=== PATIENT | female | born 1980 | race Native Hawaiian/Other Pacific Islander ===

== ENCOUNTER 2017-04-03 22:06 | Emergency (ER) | payer OTHER ==
[2017-04-03] MEDS ORDERED: Lactated Ringer's 1,000 ML IV ONE (22:44)
--- NOTE | 2017-04-03 22:49 | C.PDOC ---
History Of Present Illness 37 year old female presents to the ER with a complaint of a headache since Thursday, associated with nausea, a cough since yesterday, and an intermittent subjective fever and chills for the past week with no fever today. Patient reports she has no relief from her headache with tylenol. Patient notes she recently returned from the [facility] on Thursday. Denies photophobia, chest pain , urinary frequency, vaginal discharge, abdominal pain, diarrhea or neck pain. No known sick contacts. Time Seen by Provider: 04/03/17 22:20 Chief Complaint (Nursing): Cough, Cold, Congestion History Per: Patient History/Exam Limitations: no limitations Onset/Duration Of Symptoms: Days Current Symptoms Are (Timing): Still Present Recent travel outside of the [place]: No Past Medical History Reviewed: Historical Data, Nursing Documentation, Vital Signs Vital Signs: Last Vital Signs Temp 98 F 04/04/17 01:42 Pulse 88 04/04/17 01:42 Resp 18 04/04/17 01:42 BP 120/81 04/04/17 01:42 Pulse Ox 99 04/04/17 02:42 - Medical History PMH: No Chronic Diseases Surgical History: No Surg Hx Family History: States: Unknown Family Hx - Social History Hx Alcohol Use: Yes Hx Substance Use: No - Immunization History Hx Tetanus Toxoid Vaccination: No Hx Influenza Vaccination: No Hx Pneumococcal Vaccination: No Review Of Systems Constitutional: Positive for: Fever (Intermittent) Cardiovascular: Negative for: Chest Pain Respiratory: Positive for: Cough Gastrointestinal: Positive for: Nausea Musculoskeletal: Negative for: Neck Pain Neurological: Positive for: Headache. Negative for: Other (Photophobia) Physical Exam - Physical Exam Appears: Non-toxic, No Acute Distress Skin: Normal Color, Warm, Dry Head: Atraumatic, Normacephalic Eye(s): bilateral: Normal Inspection, EOMI Ear(s): Bilateral: Normal Nose: Normal Oral Mucosa: Moist Throat: Normal, No Erythema, No Exudate Neck: Normal, Normal ROM, No Midline Cervical Tenderness, No Paracervical Tenderness, Supple ((-) brudzinski sign and kernig sign) Chest: Symmetrical Cardiovascular: Rhythm Regular Respiratory: Normal Breath Sounds, No Rales, No Rhonchi, No Wheezing Gastrointestinal/Abdominal: Soft, No Tenderness Neurological/Psych: Oriented x3, Normal Speech, Normal Cognition ED Course And Treatment - Laboratory Results Result Diagrams: 04/03/17 23:07 04/03/17 23:30 O2 Sat by Pulse Oximetry: 99 (Room air) Pulse Ox Interpretation: Normal - CT Scan/US CT Head Other Rad Studies (CT/US): Read By Radiologist, Radiology Report Reviewed CT/US Interpretation: EXAM: CT Head Without Intravenous Contrast. EXAM DATE/ TIME: 04/03/2017 10:44 PM. CLINICAL HISTORY: 37 years old, female; Pain; Headache and other: More at right side; Additional info: R/O bleed. TECHNIQUE: Axial computed tomography images of the head/brain without intravenous contrast. All CT scans at. this facility use one or more dose reduction techniques, viz.: automated exposure control; ma/kV. adjustment per patient size (including targeted exams where dose is matched to indication; i.e. head); . or iterative reconstruction technique. Coronal and sagittal reformatted images were created and reviewed. COMPARISON: There are no prior studies for comparison. FINDINGS: Brain: Ventricles are normal in size and configuration. There is no midline shift. There are no intraaxial. or extra-axial mass lesions or areas of hemorrhage. There are no abnormal fluid collections. Carbone- white differentiation is maintained. Ventricles: See above. Bones: Cranial vault is intact. Soft tissues: unremarkable. Sinuses: There is no acute sinusitis. Ears and mastoids: Middle ears and mastoids are unremarkable. Orbits: Orbital contents are unremarkable. IMPRESSION: No acute intracranial abnormality Progress Note: CXR, blood work, CT head, and urinalysis ordered. IV fluids, reglan, toradol. Leukocytosis noted, additional labs ordered. UA evaluated, Rocephin ordered. Dr Arreaga called, voicemail left, no call back. Pt was offered admission, pt requested discsharge. Discussed concern for leukocytosis. PT notes she feels much better, will return if symtpoms persist or worsen. Instructed strict follow up. Case discsused and labs evaluated by Dr Bruno, agreed upon plan and treatment and discharge. Disposition - Disposition Disposition: HOME/ ROUTINE Disposition Time: 02:39 Condition: STABLE Additional Instructions: Follow up with your PMD in 1-2 days. Return to ER if symptoms persist or worsen. Prescriptions: Fluconazole [Diflucan] 150 mg PO DAILY #1 tab Naproxen [Naprosyn] 1 tab PO BID PRN #20 tab PRN Reason: Pain Sulfamethoxazole/Trimethoprim [Bactrim DS 800 mg-160 mg] 1 tab PO BID #20 tab Instructions: Urinary Tract Infection in Women (ED) Forms: [employer] [facility] ([place]) - Clinical Impression Clinical Impression: Leukocytosis, UTI (urinary tract infection), Headache - Scribe Statement The provider has reviewed the documentation as recorded by the Scribfélix Miranda All medical record entries made by the Georginaibfélix were at my direction and personally dictated by me. I have reviewed the chart and agree that the record accurately reflects my personal performance of the history, physical exam, medical decision making, and the department course for this patient. I have also personally directed, reviewed, and agree with the discharge instructions and disposition.
[2017-04-03] MEDS ORDERED: Lactated Ringer's 1,000 ML ONE (22:51)
[2017-04-03 23:10] LABS: BASO # 0.1 K/uL (0.0-0.2); BASO % 0.4 % (0.0-2.0); EOS # 0.1 K/uL (0.0-0.7); EOS % 0.4 % (0.0-4.0); HEMATOCRIT 46.6 % (34.0-47.0); LYMPH # 2.1 K/uL (1.0-4.3); LYMPH % 8.3 % (20.0-40.0); MEAN CELL VOLUME 79.7 fL (81.0-99.0); MEAN CORPUSCULAR HEMOGLOBIN 26.1 pg (27.0-31.0); MEAN CORPUSCULAR HGB CONC 32.7 g/dL (33.0-37.0); MONO # 1.2 K/uL (0.0-0.8); MONO % 4.8 % (0.0-10.0); NRBC % 0.2 % (0.0-2.0); PLATELET COUNT 546 K/uL (130-400); RED CELL DISTRIBUTION WIDTH 13.7 % (11.5-14.5)
[2017-04-03 23:13] LABS: WHITE BLOOD COUNT 25.7 K/uL (4.8-10.8)
[2017-04-03 23:45] LABS: ALKALINE PHOSPHATASE 77 U/L (38-126); ALT/SGPT 31 U/L (9-52); AST/SGOT 26 U/L (14-36); BILIRUBIN,TOTAL 1.5 mg/dL (0.2-1.3); BLOOD UREA NITROGEN 15 mg/dL (7-17); CALCIUM 8.8 mg/dl (8.6-10.4); CARBON DIOXIDE 23 mmol/L (22-30); CHLORIDE 94 mmol/L (98-107); GFR AFRICAN-AMERICAN > 60; GLUCOSE,RANDOM 107 mg/dL (65-105); POTASSIUM 3.5 mmol/L (3.6-5.2); SODIUM 133 mmol/L (132-148); TOTAL PROTEIN 9.3 g/dL (6.3-8.3)
[2017-04-03 23:49] LABS: NEUTROPHIL 91 % (50-75); TOTAL CELLS COUNTED 100
--- NOTE | 2017-04-04 00:03 | CT ---
EXAM: CT Head Without Intravenous Contrast EXAM DATE/TIME: 04/03/2017 10:44 PM CLINICAL HISTORY: 37 years old, female; Pain; Headache and other: More at right side; Additional info: R/O bleed TECHNIQUE: Axial computed tomography images of the head/brain without intravenous contrast. All CT scans at this facility use one or more dose reduction techniques, viz.: automated exposure control; ma/kV adjustment per patient size (including targeted exams where dose is matched to indication; i.e. head); or iterative reconstruction technique. Coronal and sagittal reformatted images were created and reviewed. COMPARISON: There are no prior studies for comparison. FINDINGS: Brain: Ventricles are normal in size and configuration. There is no midline shift. There are no intra-axial or extra-axial mass lesions or areas of hemorrhage. There are no abnormal fluid collections. Carbone-white differentiation is maintained. Ventricles: See above. Bones: Cranial vault is intact. Soft tissues: unremarkable Sinuses: There is no acute sinusitis. Ears and mastoids: Middle ears and mastoids are unremarkable Orbits: Orbital contents are unremarkable. IMPRESSION: No acute intracranial abnormality
[2017-04-04 00:39] LABS: RBC URINE 30 /hpf (0-3); URINE BACTERIA MANY (<OCC); URINE BILIRUBIN NEGATIVE (NEGATIVE); URINE COLOR Amber (YELLOW); URINE GLUCOSE (UA) NORMAL (Normal); URINE KETONE 1+ mg/dL (NEGATIVE); URINE LEUKOCYTE ESTERASE 2+ Leu/uL (Negative); URINE PROTEIN 2+ mg/dL (NEGATIVE); URINE UROBILINOGEN NORMAL mg/dL (0.2-1.0); WBC CLUMPS FEW /hpf; WBC URINE 28 /hpf (0-5)
[2017-04-04 00:40] LABS: URINE BLOOD 2+ (NEGATIVE)
[2017-04-04] MEDS ORDERED: cefTRIAXone IV 1 gm in Dextros 50 ML IV ONE (00:44)
[2017-04-04 00:56] LABS: VENOUS BLOOD GAS PCO2 25 mmHg (40-60); VENOUS BLOOD PH 7.43 (7.32-7.43)
[2017-04-04] MEDS ORDERED: cefTRIAXone IV 1 gm in Dextros 50 ML IVPB ONE (01:08)
[2017-04-04 01:47] VITALS: BP 120/81; PULSE 88; RESP 18; TEMP 98
[2017-04-04 02:42] VITALS: O2SAT 99
--- NOTE | 2017-04-04 07:46 | RAD ---
HISTORY: fever COMPARISON: No prior. TECHNIQUE: Chest PA and lateral FINDINGS: LUNGS: No active pulmonary disease. PLEURA: No significant pleural effusion identified. No pneumothorax apparent. CARDIOVASCULAR: Normal. OSSEOUS STRUCTURES: No significant abnormalities. VISUALIZED UPPER ABDOMEN: Normal. OTHER FINDINGS: None. IMPRESSION: No active disease.
== END 2017-04-04 03:15 | disposition home or self-care (01) ==
LOC: C.ER 22:06
DX: N39.0 Urinary tract infection, site not specified (principal); R51 Headache; D72.829 Elevated white blood cell count, unspecified
CPT/HCPCS: 70450; 71020; 80053; 81001; 82803; 85025; 87086; 96361; 96374; 96375; 99284; J0696; J1885; J2765; J7120